=== PATIENT | female | born 1990 | race Caucasian/White ===

== ENCOUNTER 2016-11-22 22:59 | Emergency (ER) | payer BC, MEDICAID ==
[2016-11-23] MEDS ORDERED: MORPHINE SULFATE IR 15 MG TABLET PO ONE (01:24)
[2016-11-23] MEDS ORDERED: IBUPROFEN 600 MG TABLET PO ONE (01:24)
[2016-11-23] MEDS ORDERED: ACETAMINOPHEN 325 MG TABLET PO ONE (01:25)
--- NOTE | 2016-11-23 01:28 | ER Document Report ---
ED General - General Chief Complaint: Post Surgical Bleeding Stated Complaint: BACK PAIN Time Seen by Provider: 11/23/16 00:21 Notes: Patient is a 26-year-old female who presents with ongoing rectal pain and scant amount of spotting of blood since she had a hemorrhoidectomy on November 13. States that the pain was controlled when she was taking Percocet but has gotten worse since she ran out of that medication. Does describe a dull, constant, stabbing pain to the anus. Nothing improves or worsens her pain. She is not contacted the surgeon who performed the procedure regarding her concerns. TRAVEL OUTSIDE OF THE [place] IN LAST 30 DAYS: No - Related Data Allergies/Adverse Reactions: No Known Allergies Allergy (Verified 11/22/16 23:46) Past Medical History - General Information source: Patient - Social History Smoking Status: Never Smoker Chew tobacco use (# tins/day): No Frequency of alcohol use: None Drug Abuse: None Lives with: Spouse/Significant other Family History: Reviewed & Not Pertinent Renal/ Medical History: Denies: Hx Peritoneal Dialysis - Immunizations Hx Diphtheria, Pertussis, Tetanus Vaccination: Yes Review of Systems - Review of Systems Notes: Constitutional: Negative for fever. HENT: Negative for sore throat. Eyes: Negative for visual changes. Cardiovascular: Negative for chest pain. Respiratory: Negative for shortness of breath. Gastrointestinal: Positive for rectal pain Genitourinary: Negative for dysuria. Musculoskeletal: Negative for back pain. Skin: Negative for rash. Neurological: Negative for headaches, weakness or numbness. 10 point ROS negative except as marked above and in HPI. Physical Exam - Vital signs Vitals: Temp Pulse Resp BP Pulse Ox 99.1 F 62 20 121/68 100 11/22/16 23:46 11/22/16 23:46 11/22/16 23:46 11/22/16 23:46 11/22/16 23:46 Interpretation: Normal Notes: PHYSICAL EXAMINATION: GENERAL: Well-appearing, well-nourished and in no acute distress. HEAD: Atraumatic, normocephalic. EYES: Pupils equal round and reactive to light, extraocular movements intact, sclera anicteric, conjunctiva are normal. ENT: nares patent, oropharynx clear without exudates. Moist mucous membranes. NECK: Normal range of motion, supple without lymphadenopathy LUNGS: Breath sounds clear to auscultation bilaterally and equal. No wheezes rales or rhonchi. HEART: Regular rate and rhythm without murmurs ABDOMEN: Soft, nontender, normoactive bowel sounds. No guarding, no rebound. No masses appreciated. Rectal: There are 2 incisional well healing wounds at the 3 and 6 o'clock position on the anus. No active bleeding EXTREMITIES: Normal range of motion, no pitting or edema. No cyanosis. NEUROLOGICAL: No focal neurological deficits. Moves all extremities spontaneously and on command. PSYCH: Normal mood, normal affect. SKIN: Warm, Dry, normal turgor, no rashes or lesions noted. Course - Re-evaluation Re-evalutation: 11/23/16 01:25 Patient presents after having a hemorrhoidectomy on November 13 with increased pain after running out of her pain medications. Also notes that she's had a small amount of bright red bleeding but that is unchanged today. Rectal examination shows 2 well hearing incisional scars at the 4:00 and 6 o'clock position. No active bleeding. Have encouraged patient to follow closely with the surgeon who performed her procedure. She was started on Tylenol, ibuprofen and a small amount of oral morphine as needed for severe breakthrough pain.At this time will discharge with return precautions and follow-up recommendations. Verbal discharge instructions given a the bedside and opportunity for questions given. Medication warnings reviewed. Patient is in agreement with this plan and has verbalized understanding of return precautions and the need for primary care follow-up in the next 24-72 hours. - Vital Signs Vital signs: Temp Pulse Resp BP Pulse Ox 98.6 F 82 18 110/70 98 11/23/16 01:47 11/23/16 01:47 11/23/16 01:47 11/23/16 01:47 11/23/16 01:47 Discharge - Discharge Clinical Impression: Rectal pain Condition: Good Disposition: HOME, SELF-CARE Additional Instructions: Please follow-up with your primary surgeon regarding today's concerns. For your pain: Take ibuprofen 600 mg and acetaminophen 1000 mg every 6 hours together as needed for pain. If this does not control pain you may take 15 mg of oral morphine every 4 hours as needed. Please be very careful about using the oral morphine and only use this for severe pain. Prescriptions: Morphine Sulfate [Morphine Ir 15 mg Tablet] 15 mg PO Q4HP PRN #8 tablet PRN Reason: Referrals: SHAGGY TORREZ PA-C [Primary Care Provider] - Follow up in 3-5 days
[2016-11-23 01:48] VITALS: BP 110/70
== END 2016-11-23 01:49 | disposition home or self-care (01) ==
LOC: ER 22:59
DX: K62.89 Other specified diseases of anus and rectum (principal); L76.22 Postprocedural hemorrhage of skin and subcutaneous tissue following other procedure; M54.9 Dorsalgia, unspecified
CPT/HCPCS: 99283; J3490 ×2

== ENCOUNTER 2017-08-19 12:25 | Emergency (ER) | payer MEDICAID ==
--- NOTE | 2017-08-19 14:30 | ER Document Report ---
HPI - HPI Pain Level: 1 Notes: Patient is a 27-year-old female with a history of chronic issues with constipation who presents ED complaining of constipation with this last week. Patient states that she has tried MiraLAX for 2 days with minimal relief. Patient did use a laxative which did seem to help a little bit as well over the last couple days. Patient states that she did have a bowel movement last night , but was small and hard. Patient states she is otherwise eating and drink without difficulties. She is urinating normally. She has not noticed any melena or hematochezia. She denies any drug allergies. No other concerns or complaints at this time. Patient states that she does not normally drink a lot of water nor does she have a diet high in fiber. Denies any headache, fever, neck pain, URI, sore throat, chest pain, palpitations, syncope, cough, shortness of breath, wheeze, dyspnea, abdominal pain, nausea/vomiting/diarrhea, urinary retention, dysuria, hematuria, loss of control of bowel or bladder, numbness/tingling, saddle anesthesia, muscle paralysis/weakness, or rash. - ROS Systems Reviewed and Negative: Yes All other systems reviewed and negative - REPRODUCTIVE Reproductive: REPORTS: : Past Medical History - Social History Smoking Status: Never Smoker Family History: Reviewed & Not Pertinent Renal/ Medical History: Denies: Hx Peritoneal Dialysis - Immunizations Hx Diphtheria, Pertussis, Tetanus Vaccination: Yes Vertical Provider Document - CONSTITUTIONAL Agree With Documented VS: Yes Notes: PHYSICAL EXAMINATION: GENERAL: Well-appearing, well-nourished and in no acute distress. LUNGS: Breath sounds clear to auscultation bilaterally and equal. No wheezes rales or rhonchi. HEART: Regular rate and rhythm without murmurs, rubs, gallops. ABDOMEN: Soft, nontender, nondistended abdomen. No guarding, no rebound. No masses appreciated. Normal bowel sounds present. No CVA tenderness bilaterally. Rectal: deferred at this time. see hpi. Musculoskeletal: FROM to passive/active. Strength 5+/5. Extremities: No cyanosis, clubbing, or edema b/l. Peripheral pulses 2+. Capillary refill less than 3 seconds. NEUROLOGICAL: Normal speech, normal gait. Normal sensory, motor exams PSYCH: Normal mood, normal affect. SKIN: Warm, Dry, normal turgor, no rashes or lesions noted. - INFECTION CONTROL TRAVEL OUTSIDE OF THE [place] IN LAST 30 DAYS: No - RESPIRATORY O2 Sat by Pulse Oximetry: 100 Course - Re-evaluation Re-evalutation: 08/19/17 14:41 Patient is an afebrile, well-hydrated, 27-year-old female who presents ED with constipation. Vitals are stable. PE is otherwise unremarkable. Low suspicion for any obstruction, perforation, sepsis, meningitis, peritonitis, or other acute abdomen at this time. No labs or imaging warranted at this time based on H&P. Patient has not had any GI symptoms aside from constipation and is still having bowel movements. No rectal exam performed today because of this. I will send her home with a prescription for mag citrate to use as directed. Advised that she needs to drink plenty of water and have a healthy diet with fiber as well. Patient to continue with MiraLAX thereafter as instructed. Recheck with your PCM in 3-5 days. Consider consult gastroenterology. Return to the ED with any worsening/concerning symptoms otherwise as reviewed discharge. Patient is in agreement. - Vital Signs Vital signs: Temp Pulse Resp BP Pulse Ox 99.2 F 66 16 119/72 100 08/19/17 13:07 08/19/17 13:07 08/19/17 13:07 08/19/17 13:07 08/19/17 13:07 Discharge - Discharge Clinical Impression: Constipation Qualifiers: Constipation type: unspecified constipation type Qualified Code(s): K59.00 - Constipation, unspecified Condition: Stable Disposition: HOME, SELF-CARE Instructions: Constipation ([facility]), Laxative ([facility]) Additional Instructions: Maintain adequate fluid and food intake Increase water and fiber intake Miralax 1-2 capfuls daily as directed Use mag citrate as directed tylenol if needed Monitor for any worsening symptoms Make sure you are staying hydrated enough to urinate and have normal BM's Recheck with your PCM in 3-5 days Consider consult with Gastroenterology for ongoing/worsening symptoms Return to the ED with any worsening symptoms and/or development of fever, headache, chest pain, palpitations, syncope, shortness of breath, trouble breathing, abdominal pain, n/v/d, blood in stool/urine, weakness, or other worsening symptoms that are concerning to you. Prescriptions: Magnesium Citrate [Citrate of Magnesia 296 ml Bottle] 296 ml PO ONCE PRN #1 bottle PRN Reason: Referrals: NANCY OLIVIA MD [ACTIVE STAFF] - Follow up as needed
[2017-08-19 15:00] VITALS: BP 108/65
== END 2017-08-19 15:11 | disposition home or self-care (01) ==
LOC: ER 12:25
DX: K59.09 Other constipation (principal)
CPT/HCPCS: 99283

== ENCOUNTER 2017-09-06 09:10 | Emergency (ER) | payer MEDICAID ==
[2017-09-06 09:16] VITALS: BP 110/81
--- NOTE | 2017-09-06 09:34 | ER Document Report ---
ED General - General Chief Complaint: Constipation Stated Complaint: ABDOMINAL PAIN Time Seen by Provider: 09/06/17 09:26 Notes: Patient presents with approximately 1 week of constipation. Denies any black or red stools. She has had symptoms like this in the past and states that she feels bloated. She states she only drinks approximately 1 glass of water a day. Denies any medical problems is not taking medications on a daily basis. She has been taking fiber supplementation to help with her constipation but is not. Denies any burning with urination nausea vomiting or diarrhea. TRAVEL OUTSIDE OF THE [place] IN LAST 30 DAYS: No - Related Data Allergies/Adverse Reactions: No Known Allergies Allergy (Verified 08/19/17 14:42) Past Medical History - Social History Smoking Status: Never Smoker Chew tobacco use (# tins/day): No Frequency of alcohol use: Occasional Drug Abuse: None Family History: Reviewed & Not Pertinent Patient has suicidal ideation: No Patient has homicidal ideation: No Renal/ Medical History: Denies: Hx Peritoneal Dialysis - Immunizations Hx Diphtheria, Pertussis, Tetanus Vaccination: Yes Review of Systems - Review of Systems Constitutional: No symptoms reported EENT: No symptoms reported Cardiovascular: No symptoms reported Respiratory: No symptoms reported Gastrointestinal: Constipation Genitourinary: No symptoms reported Female Genitourinary: No symptoms reported Musculoskeletal: No symptoms reported Skin: No symptoms reported Hematologic/Lymphatic: No symptoms reported Neurological/Psychological: No symptoms reported Physical Exam - Vital signs Vitals: Temp Pulse Resp BP Pulse Ox 98.2 F 79 16 110/81 100 09/06/17 09:15 09/06/17 09:15 09/06/17 09:15 09/06/17 09:15 09/06/17 09:15 - General General appearance: Appears well, Alert - HEENT Head: Normocephalic, Atraumatic - Respiratory Respiratory status: No respiratory distress Chest status: Nontender Breath sounds: Normal - Cardiovascular Rhythm: Regular Heart sounds: Normal auscultation - Abdominal Inspection: Normal Distension: No distension Bowel sounds: Normal Tenderness: Nontender - Back Back: Normal - Psychological Associated symptoms: Normal affect Course - Re-evaluation Re-evalutation: 09/06/17 09:34 Well-appearing patient with 1 week of constipation with similar symptoms in the past. Unremarkable exam. Will screen urine and if not will provide bowel regimen. 09/06/17 11:37 Patient's KUB shows moderate constipation with no signs of bowel obstruction. Will provide MiraLAX and milk of magnesia and glycerin suppositories. Discussed with patient proper fluid hydration. Return precautions provided - Vital Signs Vital signs: Temp Pulse Resp BP Pulse Ox 98.2 F 79 16 110/81 100 09/06/17 09:15 09/06/17 09:15 09/06/17 09:15 09/06/17 09:15 09/06/17 09:15 Discharge - Discharge Clinical Impression: Constipated Qualifiers: Constipation type: unspecified constipation type Qualified Code(s): K59.00 - Constipation, unspecified Disposition: HOME, SELF-CARE Instructions: Constipation ([facility]) Additional Instructions: Please purchase [id number] glycerin suppositories and use as directed. You have been prescribed MiraLAX please take once daily every morning. You can also buy [id number] milk of magnesia and use as directed up to 4 times daily. Please drink at least 4-6 glasses of water daily as this will improve your symptoms. Prescriptions: Polyethylene Glycol 3350 [Miralax Powder 17 gm/Packet] 1 packet PO QAM #30 pkg
[2017-09-06 10:37] LABS: AMORPHOUS SEDIMENT,URINE 1+ /HPF; APPEARANCE,URINE TURBID; BILIRUBIN,URINE NEGATIVE (NEGATIVE); COLOR,URINE YELLOW; GLUCOSE, URINE NEGATIVE (NEGATIVE); KETONES,URINE NEGATIVE (NEGATIVE); LEUKOCYTE ESTERASE,URINE NEGATIVE (NEGATIVE); NITRITE,URINE NEGATIVE (NEGATIVE); PROTEIN,URINE NEGATIVE (NEGATIVE); UROBILINOGEN,URINE NEGATIVE mg/dL (<2.0)
--- NOTE | 2017-09-06 11:35 | RADIOLOGY REPORT (SQ) ---
EXAM DESCRIPTION: KUB/ABDOMEN (SINGLE VIEW) COMPLETED DATE/TIME: 09/06/2017 11:24 am REASON FOR STUDY: constipation COMPARISON: None. NUMBER OF VIEWS: One view. TECHNIQUE: Supine radiographic image of the abdomen acquired. LIMITATIONS: None. FINDINGS: BOWEL GAS PATTERN: Normal bowel gas pattern. No dilated loops. CONSTIPATION: Moderate CALCIFICATIONS: No suspicious calcifications. SOFT TISSUES: No gross mass or suggestion of organomegaly. BONES: No acute fracture. No worrisome bone lesions. OTHER: No other significant finding. HARDWARE: Tubal occlusion devices. IMPRESSION: NO RADIOGRAPHIC EVIDENCE FOR ACUTE ABDOMINAL DISEASE. Moderate constipation. TECHNICAL DOCUMENTATION: JOB ID: [id number] [employer]- All Rights Reserved Reading location - IP/workstation name: [email or web address]
== END 2017-09-06 11:55 | disposition home or self-care (01) ==
LOC: ER 09:10
DX: K59.00 Constipation, unspecified (principal); R10.9 Unspecified abdominal pain; R14.0 Abdominal distension (gaseous)
CPT/HCPCS: 74018; 81001; 81025; 99283

== ENCOUNTER 2018-08-12 11:02 | Emergency (ER) | payer MEDICAID ==
[2018-08-12] MEDS ORDERED: LIDOCAINE 2% VISCOUS SOLN 20 ML UDCUP PO ONE (11:49)
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
[2018-08-12 11:59] VITALS: BP 105/77
== END 2018-08-12 12:08 | disposition home or self-care (01) ==
LOC: ER 11:02
DX: T28.0XXA Burn of mouth and pharynx, initial encounter (principal); X10.1XXA Contact with hot food, initial encounter; F17.200 Nicotine dependence, unspecified, uncomplicated
CPT/HCPCS: 99282; J3490

== ENCOUNTER 2018-08-27 09:31 | Emergency (ER) | payer MEDICAID ==
[2018-08-27 09:44] VITALS: BP 117/76
--- NOTE | 2018-08-27 09:55 | ER Document Report ---
HPI - HPI Patient complains to provider of: sore throat Time Seen by Provider: 08/27/18 09:54 Onset: Other - 1 week Pain Level: 1 Context: Patient presents emergency department with complaints for severe sore throat for 1 week cough sometimes coughing up mucus stuffy nose and headaches occasionally. Denies fever vomiting diarrhea. Denies exposure to strep. No other family members ill. She reports she has been using an [id number] to decongestant. Without relief of symptoms Associated Symptoms: Nonproductive cough, Sore throat Exacerbated by: Denies Relieved by: Denies Similar symptoms previously: No Recently seen / treated by doctor: No - REPRODUCTIVE Reproductive: DENIES: : Past Medical History - General Information source: Patient - Social History Smoking Status: Current Every Day Smoker Cigarette use (# per day): Yes Frequency of alcohol use: None Drug Abuse: None Lives with: Family Family History: Reviewed & Not Pertinent Patient has suicidal ideation: No Patient has homicidal ideation: No - Medical History Medical History: Negative Renal/ Medical History: Denies: Hx Peritoneal Dialysis Surgical Hx: Negative - Immunizations Hx Diphtheria, Pertussis, Tetanus Vaccination: Yes Vertical Provider Document - CONSTITUTIONAL Agree With Documented VS: Yes Exam Limitations: No Limitations General Appearance: WD/WN, No Apparent Distress - INFECTION CONTROL TRAVEL OUTSIDE OF THE [place] IN LAST 30 DAYS: No - HEENT HEENT: Atraumatic, Normal ENT Exam, Normocephalic. negative: Conjuctival Injection, Pharyngeal Exudate, Pharyngeal Erythema, Tympanic Membrane Red Notes: Good airway no erythema/ swelling /exudate - NECK Neck: Normal Inspection, Supple. negative: Lymphadenopathy-Left, Lymphadenopathy-Right - RESPIRATORY Respiratory: Breath Sounds Normal, No Respiratory Distress - CARDIOVASCULAR Cardiovascular: Regular Rate - GI/ABDOMEN Gastrointestinal: Abdomen Soft, Abdomen Non-Tender - MUSCULOSKELETAL/EXTREMETIES Musculoskeletal/Extremeties: MAEW, FROM - NEURO Level of Consciousness: Awake, Alert, Appropriate Motor/Sensory: No Motor Deficit - DERM Integumentary: Warm, Dry Course - Re-evaluation Re-evalutation: 08/27/18 Drip negative. Patient looks nontoxic. No x-ray done because no coughing noted while I was in the room lungs are clear. Patient was instructed on culture pending. Also instructed she will be contacted if she needs antibiotics. She verbalized understanding to all instructions. Dictation of this chart was performed using voice recognition software; therefore, there may be some unintended grammatical errors. - Vital Signs Vital signs: Temp Pulse Resp BP Pulse Ox 97.9 F 95 18 117/76 100 08/27/18 09:42 08/27/18 09:42 08/27/18 09:42 08/27/18 09:42 08/27/18 09:42 Discharge - Discharge Clinical Impression: Sore throat, Sinus drainage Condition: Stable Disposition: HOME, SELF-CARE Instructions: Decongestant-Antihistamine Medication ([facility]), Sore Throat ([facility]) Additional Instructions: *You have been evaluated for a sore throat, Sinus drainage *Rapid strep test was negative. A throat culture is pending. If the culture comes back positive you will be contacted and antibiotics will be prescribed as indicated. *Take decongestants as indicated, tylenol as indicated for headaches *Warm salt water gargles and throat lozenges for comfort *Good hand washing *Follow-up with a primary care provider within one week for recheck *Return to ED for worsening condition change, needs Referrals: APOLINAR LEE DO [Primary Care Provider] - Follow up tomorrow
== END 2018-08-27 10:48 | disposition home or self-care (01) ==
LOC: ER 09:31
DX: J02.9 Acute pharyngitis, unspecified (principal); J34.89 Other specified disorders of nose and nasal sinuses; R05 Cough; R51 Headache; F17.210 Nicotine dependence, cigarettes, uncomplicated
CPT/HCPCS: 87070; 87880; 99283

== ENCOUNTER 2018-08-28 19:54 | Emergency (ER) | payer MEDICAID ==
[2018-08-28 20:01] VITALS: BP 106/66
[2018-08-28] MEDS ORDERED: GUAIFENESIN 600 MG TABLET.SA PO ONE (20:30)
[2018-08-28] MEDS ORDERED: IBUPROFEN 400 MG TABLET PO ONE (20:30)
[2018-08-28] MEDS ORDERED: LORATADINE 10 MG TABLET PO ONE (20:30)
[2018-08-28] MEDS ORDERED: DEXAMETHASONE SOD PHOS INJ 10 MG/1 ML VIAL IM ONE (20:30)
--- NOTE | 2018-08-28 20:38 | ER Document Report ---
ED ENT - General Chief Complaint: Sore Throat Stated Complaint: SORE THROAT Time Seen by Provider: 08/28/18 20:29 Primary Care Provider: APOLINAR LEE DO [Primary Care Provider] - Follow up tomorrow Mode of Arrival: Ambulatory Information source: Patient Notes: 28-year-old female presents to ED for complaint of cough cold congestion sore throat times 2 weeks with runny nose but no fevers. She was seen yesterday for the same sore throat and a strep test was negative. The strep test shows no results as of 24 hours. Patient is alert oriented respirations regular and unlabored speaking in full sentences. She does states she is having some difficulty swallowing and speaking. She states she can still swallow pills and eat but it is painful. TRAVEL OUTSIDE OF THE [place] IN LAST 30 DAYS: No - HPI Patient complains to provider of: Nose problem, Throat problem Onset: Other - 2 weeks Onset/Duration: Gradual Quality of pain: Sharp Severity: Severe Pain Level: 5 Context: Recent Illness Location of pain: Nose, Sinus, Throat Associated symptoms: Congestion, Cough, Runny nose, Sinus pain, Sinus drainage, Sore throat. denies: Fever Similar symptoms previously: Yes Recently seen / treated by doctor: Yes - Related Data Allergies/Adverse Reactions: No Known Allergies Allergy (Verified 08/19/17 14:42) Past Medical History - General Information source: Patient - Social History Smoking Status: Never Smoker Cigarette use (# per day): No Chew tobacco use (# tins/day): No Smoking Education Provided: No Frequency of alcohol use: None Drug Abuse: None Lives with: Family Family History: Reviewed & Not Pertinent Patient has suicidal ideation: No Patient has homicidal ideation: No - Past Medical History Cardiac Medical History: Reports: None Pulmonary Medical History: Reports: None EENT Medical History: Reports: None Neurological Medical History: Reports: None Endocrine Medical History: Reports: None Renal/ Medical History: Reports: None Malignancy Medical History: Reports: None GI Medical History: Reports: None Musculoskeletal Medical History: Reports None Skin Medical History: Reports None Psychiatric Medical History: Reports: Hx Depression Traumatic Medical History: Reports: None Infectious Medical History: Reports: None Surgical Hx: Negative Past Surgical History: Reports: None - Immunizations Hx Diphtheria, Pertussis, Tetanus Vaccination: Yes Review of Systems - Review of Systems Constitutional: Recent illness. denies: Fever EENT: Nose congestion, Nose discharge, Sinus pressure, Sinus discharge, Throat pain Cardiovascular: No symptoms reported Respiratory: Cough Gastrointestinal: No symptoms reported Genitourinary: No symptoms reported Female Genitourinary: No symptoms reported Musculoskeletal: No symptoms reported Skin: No symptoms reported Hematologic/Lymphatic: No symptoms reported Neurological/Psychological: No symptoms reported -: Yes All other systems reviewed and negative Physical Exam - Vital signs Vitals: Temp Pulse Resp BP Pulse Ox 98.4 F 75 14 106/66 100 08/28/18 20:00 08/28/18 20:00 08/28/18 20:00 08/28/18 20:00 08/28/18 20:00 Interpretation: Normal - General General appearance: Appears well, Alert - HEENT Head: Normocephalic, Atraumatic Eyes: Normal Pupils: PERRL Ears: Normal External canal: Normal Tympanic membrane: Normal Sinus: Normal Nasal: Purulent discharge, Swelling Mouth/Lips: Normal Mucous membranes: Normal Pharynx: Post nasal drainage. No: Erythema, Exudate, Peritonsillar abscess, Retropharyngeal abscess, Tonsillar hypertrophy, Potential airway comprom. Neck: Normal - Respiratory Respiratory status: No respiratory distress Chest status: Nontender Breath sounds: Nonproductive cough Chest palpation: Normal - Cardiovascular Rhythm: Regular Heart sounds: Normal auscultation Murmur: No - Abdominal Inspection: Normal Distension: No distension Bowel sounds: Normal Tenderness: Nontender Organomegaly: No organomegaly - Back Back: Normal, Nontender - Extremities General upper extremity: Normal inspection, Nontender, Normal color, Normal ROM, Normal temperature General lower extremity: Normal inspection, Nontender, Normal color, Normal ROM, Normal temperature, Normal weight bearing. No: Huan's sign - Neurological Neuro grossly intact: Yes Cognition: Normal Orientation: AAOx4 Oscar Coma Scale Eye Opening: Spontaneous [place] Coma Scale Verbal: Oriented Oscar Coma Scale Motor: Obeys Commands Oscar Coma Scale Total: 15 Speech: Normal Motor strength normal: LUE, RUE, LLE, RLE Sensory: Normal - Psychological Associated symptoms: Normal affect, Normal mood - Skin Skin Temperature: Warm Skin Moisture: Dry Skin Color: Normal Course - Re-evaluation Re-evalutation: 08/28/18 20:44 Patient was treated with Decadron IM, Mucinex, Claritin, ibuprofen in the emergency room. Patient was given instructions on cough cold congestion medications gargle with salt and soda solution, will use Chloraseptic spray, use of Flonase, and other remedies for her cough cold congestion. Patient was instructed to follow-up with her primary doctor. The strep is still negative as of today. Patient was discharged home after she verbalized understanding and agreement with treatment plan. - Vital Signs Vital signs: Temp Pulse Resp BP Pulse Ox 98.4 F 75 14 106/66 100 08/28/18 20:00 08/28/18 20:00 08/28/18 20:00 08/28/18 20:00 08/28/18 20:00 Discharge - Discharge Clinical Impression: Viral sore throat URI (upper respiratory infection) Qualifiers: URI type: unspecified viral URI Qualified Code(s): J06.9 - Acute upper respiratory infection, unspecified Condition: Stable Disposition: HOME, SELF-CARE Additional Instructions: SORE THROAT: Sore throats may be caused by viruses, bacteria, or fungi. Most are due to a virus, and must get better on their own. Bacterial sore throats, particularly those due to "strep," need treatment with antibiotics. If an antibiotic is prescribed, be sure to take the medication for a full 10 days. Failure to take the antibiotic can result in complications such as rheumatic fever. Sometimes, an injection of antibiotics is given instead of pills or liquid. This single "shot" is equal in effectiveness to the oral medication. To relieve symptoms, take acetaminophen for pain. Sip clear liquids frequently, or eat popsicles or ice chips. Anesthetic sprays or lozenges may help. Make sure the air in the room is not too dry. Avoid using decongestants or antihistamines. Call the doctor if there is no improvement in two days, or if you have difficulty breathing, increasing throat pain, high fever, rash, or frequent vomiting. UPPER RESPIRATORY ILLNESS: You have a viral infection of the respiratory passages -- a "cold." This common infection causes nasal congestion, drainage, and often sore throat and cough. It is highly contagious. The disease usually lasts about 10 to 14 days. There is no "cure" for the viral infection -- it must run its course. If there is a complication, such as bacterial infection in the nose, sinuses, middle ear, or bronchial tubes, antibiotics may be required. The antibiotics won't affect the virus. Drink plenty of fluids. A humidifier may help. An expectorant medication or decongestant may make you more comfortable. Use acetaminophen or ibuprofen for fever or aches. See the doctor if fever persists over two days, if there is any significant worsening of your symptoms, or if you simply fail to improve as expected. STEROID MEDICATION: You have been given an injection of or oral medicine of the cortisone/steroid class. This medication is used to control inflammation or allergy. Remberto t is usually only given for a short period of time, until the acute process subsides. There are usually no side effects from short-term use of cortisone-like medications. Some persons feel an increased sense of well-being and are not sleepy at bedtime. Long-term use of cortisone medications is best avoided, unless required for a severe condition. If your condition does not remit, or relapses after the course of corticosteroid medication, you should consult your physician. USE OF ACETAMINOPHEN (Tylenol): Acetaminophen may be taken for pain relief or fever control. It's much safer than aspirin, offering a wider range of "safe" dosages. It is safe during . Some brand names are Tylenol, Panadol, Datril, Anacin 3, Tempra, and Liquiprin. Acetaminophen can be repeated every four hours. The following are maximum recommended dosages: >89 pounds or adults 650 mg to 900 mg Acetaminophen can be repeated every four hours. Maximum dose not to exceed 4000 mg a day. You were treated with Claritin 10 mg, Mucinex 600 mg, ibuprofen 400 mg in the emergency room. Have also given you recommendations for Chloraseptic spray for your cough cold congestion, Flonase spray, salt and soda solution gargles, and hot tea lemon and honey. Salt and soda solution 1 quart of water 1 tablespoon of salt 1 teaspoon of baking soda Mixed 3 ingredients together and boil for 1 minute Placed in a covered quart jar Use 1/2 ounce of cold solution to gargle 3 times a day FOLLOW-UP CARE: If you have been referred to a physician for follow-up care, call the physicians office for an appointment as you were instructed or within the next two days. If you experience worsening or a significant change in your symptoms, notify the physician immediately or return to the Emergency Department at any time for re-evaluation. Referrals: APOLINAR LEE, [Primary Care Provider] - Follow up tomorrow
== END 2018-08-28 21:02 | disposition home or self-care (01) ==
LOC: ER 19:54
DX: J06.9 Acute upper respiratory infection, unspecified (principal); J02.9 Acute pharyngitis, unspecified; B34.9 Viral infection, unspecified
CPT/HCPCS: 99282; 96372; J3490 ×3; J1100